=== PATIENT | female | born 1975 | race Caucasian/White ===

== ENCOUNTER 2017-04-19 08:49 | Emergency (ER) | payer OTHER ==
[2017-04-19 08:59] VITALS: TEMP 98.2; BMI 32.5
--- NOTE | 2017-04-19 09:59 | PDOC ---
History of Present Illness - General History Source: Patient Exam Limitations: No Limitations - History of Present Illness Initial Comments: 04/19/17 10:07 The patient is a 41 year old female, with no significant past medical history who presents to the emergency department with headache for the past two weeks. Patient reports sinus headache, radiating from her nose to the entire top of her head. Patient reports associated nausea and vomiting however denies any weakness, numbness or tingling. Patient reports sinus pressure and post nasal drainage. Patients LMP was 04/17/2017 and notes these symptoms are unusual for her. She denies chest pain or dizziness. She denies fever, chills, abdominal pain, nausea, vomit, diarrhea or constipation. She denies dysuria, frequency, urgency or hematuria. Patient denies sick contacts or recent travel. Allergies: NKA Past surgical history: None Social history: None PCP: Dr. Acosta <Avril Oshea - Last Filed: 04/19/17 10:06> - General History Source: Patient Exam Limitations: No Limitations <Anni Bess - Last Filed: 04/19/17 12:41> - General Chief Complaint: Lightheaded Stated Complaint: DIZZINESS, NAUSEA Time Seen by Provider: 04/19/17 09:16 Past History <Avril Oshea - Last Filed: 04/19/17 10:06> - Past Medical History COPD: No Other medical history: NONE - Suicide/Smoking/Psychosocial Hx Smoking History: Never smoked Hx Alcohol Use: No Drug/Substance Use Hx: No <Anni Bess - Last Filed: 04/19/17 12:41> - Past Medical History Allergies/Adverse Reactions: Allergies Allergy/AdvReac Type Severity Reaction Status Date / Time No Known Allergies Allergy Verified 04/19/17 09:31 Home Medications: Ambulatory Orders Fluticasone Prop 0.05% Nasal [Flonase -] 1 spray NS DAILY #1 bot 04/19/17 Pseudoephedrine HCl 30 mg PO QID PRN #15 tablet 04/19/17 Review of Systems - Review of Systems Able to Perform ROS?: Yes Comments:: 04/19/17 10:07 GENERAL/CONSTITUTIONAL: No fever or chills. No weakness. HEAD, EYES, EARS, NOSE AND THROAT: No change in vision. No ear pain or discharge. No sore throat. GASTROINTESTINAL: No nausea, vomiting, diarrhea or constipation. GENITOURINARY: No dysuria, frequency, or change in urination. CARDIOVASCULAR: No chest pain or shortness of breath. RESPIRATORY: No cough, wheezing, or hemoptysis. MUSCULOSKELETAL: No joint or muscle swelling or pain. No neck or back pain. SKIN: No rash NEUROLOGIC: + headache. No vertigo, loss of consciousness, or change in strength /sensation. ENDOCRINE: No increased thirst. No abnormal weight change. HEMATOLOGIC/LYMPHATIC: No anemia, easy bleeding, or history of blood clots. ALLERGIC/IMMUNOLOGIC: No hives or skin allergy. <Avril Oshea - Last Filed: 04/19/17 10:06> *Physical Exam - Vital Signs Last Vital Signs Temp Pulse Resp BP Pulse Ox 98.2 F 81 20 130/67 100 04/19/17 08:55 04/19/17 08:55 04/19/17 08:55 04/19/17 08:55 04/19/17 08:55 - Physical Exam Comments: 04/19/17 10:07 ADULT EXAM GENERAL: Awake, alert, and fully oriented, in no acute distress HEAD: No signs of trauma EYES: PERRLA, EOMI, sclera anicteric, conjunctiva clear ENT: +Bilateral nasal turbenance enlargement. +Bilateral pharynx cobble stoning. Auricles normal inspection, nares patent, Moist mucosa NECK: Normal ROM, supple, no lymphadenopathy, JVD, or masses LUNGS: Breath sounds equal, clear to auscultation bilaterally. No wheezes, and no crackles HEART: Regular rate and rhythm, normal S1 and S2, no murmurs, rubs or gallops ABDOMEN: Soft, nontender, normoactive bowel sounds. No guarding, no rebound. No masses EXTREMITIES: Normal range of motion, no edema. No clubbing or cyanosis. No cords, erythema, or tenderness NEUROLOGICAL: Normal speech SKIN: Warm, Dry, normal turgor, no rashes or lesions noted. <Avril Oshea - Last Filed: 04/19/17 10:06> - Vital Signs Last Vital Signs Temp Pulse Resp BP Pulse Ox 98.2 F 81 20 130/67 100 04/19/17 08:55 04/19/17 08:55 04/19/17 08:55 04/19/17 08:55 04/19/17 08:55 <Anni Bess - Last Filed: 04/19/17 12:41> ED Treatment Course - LABORATORY CBC & Chemistry Diagram: 04/19/17 10:20 04/19/17 10:20 <Anni Bess - Last Filed: 04/19/17 12:41> Medical Decision Making - Medical Decision Making 04/19/17 09:55 41 yo f with no pmhx here wtih c/o headache and feeling fatigued. has had for 2 weeks. describes as frontal, radiating to back of head. has had similar in the past. did have n/ and v once last week. LMP one week ago. no f/c no head trauma. no focal weakness. does have seasonal allergies and sinusitis. on exam sinus ttp, bilat nasal turbinate enlarged. post pharynx cobblestoning. lungs heart normal. nuero exam intact. plan r;/o anemia, electrolyte abnoramlity, treat sinustiis and alelrgies. med ivf. reassess outpt nuero followup 04/19/17 12:30 pt labs unremarkable. feelin improved after meds. will dc home outpt referral for nuerology. given rx. for pseudoephedrine and reglan, motrin. <Anni Bess - Last Filed: 04/19/17 12:41> *DC/Admit/Observation/Transfer - Attestations Scribe Attestion: 04/19/17 10:07 Documentation prepared by Avril Oshea, acting as biomedical engineering internship for Anni Bess MD <Avril Oshea - Last Filed: 04/19/17 10:06> - Discharge Dispostion Admit: No <Anni Bess - Last Filed: 04/19/17 12:41> Diagnosis at time of Disposition: Sinusitis, Headache - Discharge Dispostion Disposition: HOME Condition at time of disposition: Improved - Prescriptions Prescriptions: Fluticasone Prop 0.05% Nasal [Flonase -] 1 spray NS DAILY #1 bot Pseudoephedrine HCl 30 mg PO QID PRN #15 tablet PRN Reason: congestion - Referrals Referrals: Divya Acosta MD [Primary Care Provider] - Murray Garcia MD [Staff Physician] - - Patient Instructions Printed Discharge Instructions: Tension Headache, Sinus Headache Additional Instructions: you should take an over the counter allergy medication such as claritin or zyrtec daily to aid with congestio. you can take pseudophed 30 mg every 6 hrs as needed for nasal congestion and sinus pressure. for your headache take motrin 400 mg every 8 hours as needed. take with food. you can also use flonase one spray intranasal daily to help with nasal congestion. follow up with nuerology for persistant headache. see referral information for dr. garcia.call to schedule.
[2017-04-19] MEDS ORDERED: SODIUM CHLORIDE 0.9% 1000 ML INFUS.BAG IV ONE (10:00)
[2017-04-19] MEDS ORDERED: METOCLOPRAMIDE HCL INJECTION 10 MG/2 ML VIAL IVPUSH ONE (10:01)
[2017-04-19] MEDS ORDERED: PSEUDOEPHEDRINE HCL 30 MG TABLET PO ONE (10:01)
[2017-04-19] MEDS ORDERED: KETOROLAC TROMETHAMINE 30 MG/1 ML VIAL IVPUSH ONE (10:02)
[2017-04-19] MEDS ORDERED: METOCLOPRAMIDE HCL INJECTION 10 MG/2 ML VIAL ONE (10:25)
[2017-04-19] MEDS ORDERED: KETOROLAC TROMETHAMINE 30 MG/1 ML VIAL ONE (10:26)
[2017-04-19] MEDS ORDERED: PSEUDOEPHEDRINE HCL 60 MG TABLET ONE (10:26)
[2017-04-19 10:50] LABS: BASOPHIL 0.4 % (0-2.0); EOSINOPHIL 0.9 % (0-4.5); MEAN CELL VOLUME 81.8 fl (80-96); MEAN PLT VOLUME 9.6 fl (7.5-11.1); NEUTROPHILS 82.6 % (42.8-82.8); PLATELET COUNT 261 K/MM3 (134-434); RDW 14.1 % (11.6-15.6); WHITE BLOOD COUNT 8.6 K/mm3 (4.0-10.0)
[2017-04-19 11:20] LABS: ALBUMIN 4.1 g/dl (3.4-5.0); ANION GAP 7 (8-16); CALCIUM 8.9 mg/dL (8.5-10.1); CO2 29 mmol/L (21-32); CREATININE 0.9 mg/dL (0.55-1.02); GLUCOSE,RANDOM 85 mg/dL (74-106); SGOT/AST 38 U/L (15-37); SGPT/ALT 32 U/L (12-78)
[2017-04-19 11:21] LABS: ALK PHOS 70 U/L (45-117); BILIRUBIN,TOTAL 0.8 mg/dL (0.2-1.0); TOT PROT 7.9 g/dl (6.4-8.2)
[2017-04-19 12:57] VITALS: BP 126/72; PULSE 72
== END 2017-04-19 12:58 | disposition home or self-care (01) ==
LOC: JER 08:49
PROC: 3E0333Z Introduction of Anti-inflammatory into Peripheral Vein, Percutaneous Approach (ICD-10-PCS; principal; 2017-04-19)
PROC: 3E033GC Introduction of Other Therapeutic Substance into Peripheral Vein, Percutaneous Approach (ICD-10-PCS; 2017-04-19)
PROC: 3E0337Z Introduction of Electrolytic and Water Balance Substance into Peripheral Vein, Percutaneous Approach (ICD-10-PCS; 2017-04-19)
DX: J32.9 Chronic sinusitis, unspecified (principal); R51 Headache
CPT/HCPCS: 36415; 80053; 84703; 85025; 99283-25

== ENCOUNTER 2018-06-04 10:07 | Emergency (ER) | payer OTHER ==
[2018-06-04 10:26] VITALS: BMI 34.4
[2018-06-04] MEDS ORDERED: KETOROLAC TROMETHAMINE 30 MG/1 ML VIAL IM ONE (11:29)
--- NOTE | 2018-06-04 11:29 | PDOC ---
History of Present Illness - General Chief Complaint: Back Pain Stated Complaint: BACK PAIN Time Seen by Provider: 06/04/18 10:54 - History of Present Illness Initial Comments: 42yo F with rheumatoid arthritis diagnosed in June, history of ovarian cysts , UPJ obstruction s/p stent in 2007 presenting with back pain. Patient reports that she has had chronic back pain for many years but her pain has gotten progressively worse over the past month, now rated 9/10. Pain worsens with movement. Patient continues to ambulate and go to work, but is limited by pain. No saddle anesthesia, shooting pain down her legs, or incontinence. She saw her primary care physician, Dr. Acosta, about two weeks ago who gave her a muscle relaxer and motrin. Patient has felt some relief of pain, but the pain remains severe. She called her doctor today as the pain now radiates anteriorly, especially in the LLQ, and was advised to come to the ED. Patient also endorses burning sensation when urinating, but no hematuria or frequency. No fevers, chills, chest pain or shortness of breath. Past History - Past Medical History Allergies/Adverse Reactions: Allergies Allergy/AdvReac Type Severity Reaction Status Date / Time No Known Allergies Allergy Verified 04/19/17 09:31 Home Medications: Ambulatory Orders Fluticasone Prop 0.05% Nasal [Flonase -] 1 spray NS DAILY #1 bot 04/19/17 Pseudoephedrine HCl 30 mg PO QID PRN #15 tablet 04/19/17 Acetaminophen W/ Codeine #3 [Tylenol # 3 -] 1 tab PO Q6H #12 tablet MDD 4 doses 06/04/18 Acetaminophen W/ Codeine #3 [Tylenol # 3 -] 1 tab PO Q6H PRN #15 tablet MDD 4 Acetaminophen W/ Codeine #3 [Tylenol # 3 -] 1 tab PO Q6H PRN #15 tablet MDD 4 Prednisone [Deltasone] 40 mg PO DAILY #8 tablet 06/04/18 COPD: No Other medical history: UPJ -OBSTRUCTION(STENT X3) RA - Immunization History Immunization Up to Date: Yes - Suicide/Smoking/Psychosocial Hx Smoking History: Never smoked Have you smoked in the past 12 months: No Information on smoking cessation initiated: No Hx Alcohol Use: No Drug/Substance Use Hx: No Review of Systems - Review of Systems Comments:: Constitutional: no fever, no chills HEENT: no throat pain, no dysphagia Cardiovascular: no chest pain, no palpitations Respiratory: no cough, no shortness of breath Gastrointestinal: no abdominal pain, no nausea, no vomiting Genitourinary: +dysuria, no frequency Musculoskeletal: +back pain Skin: no rash, no itching Neurologic: no headache, no dizziness *Physical Exam - Vital Signs Last Vital Signs Temp Pulse Resp BP Pulse Ox 98.4 F 62 18 128/79 99 06/04/18 10:24 06/04/18 10:24 06/04/18 10:24 06/04/18 10:24 06/04/18 11:11 - Physical Exam Comments: General: Awake, alert, and fully oriented, in no acute distress Head: No signs of trauma Eyes: EOMI, sclera anicteric ENT: Moist mucus membranes Neck: Normal ROM, supple Lungs: Lungs clear, Normal breath sounds Cardio: Regular rhythm, S1 and S2 present Abdomen: Tender to palpation, LLQ>RLQ. Soft, no guarding, no rebound, no masses Extremities: Normal range of motion, Distal pulses present SKIN: Warm, Dry, normal turgor Neurologic: Cranial nerves II through XII grossly intact. Back: Bony tenderness to palpation in L4 area, midline, no step-offs/deformities /fluctuance; no overlying wound or lesion; positive straight leg test on left Moderate Sedation - Procedure Monitoring Vital Signs: Procedure Monitoring Vital Signs Temperature 98.4 F 06/04/18 10:24 Pulse Rate 62 06/04/18 10:24 Respiratory Rate 18 06/04/18 10:24 Blood Pressure 128/79 06/04/18 10:24 O2 Sat by Pulse Oximetry (%) 99 06/04/18 11:11 ED Treatment Course - LABORATORY CBC & Chemistry Diagram: 06/04/18 11:55 06/04/18 11:55 Medical Decision Making - Medical Decision Making 42yo F with rheumatoid arthritis diagnosed in June, history of ovarian cysts , UPJ obstruction s/p stent in 2007 presenting with back pain. -DDX includes but not limited to: acute on chronic back pain, MSK, UTI, UPJ obstruction, nephrolithiasis, ovarian cyst -Labs -Imaging -Toradol 30 IM 06/04/18 12:09 Pain somewhat alleviated, now 6/10. 06/04/18 13:05 Ofirmev 1g IV given. Spiral CT negative for acute pathology. UA negative. Other labs unremarkable. 06/04/18 14:21 Decision made to discharge patient with tylenol #3 and prednisone *DC/Admit/Observation/Transfer Diagnosis at time of Disposition: Back pain Qualifiers: Back pain location: low back pain Chronicity: unspecified Back pain laterality : unspecified Sciatica presence: unspecified whether sciatica present Qualified Code(s): M54.5 - Low back pain - Discharge Dispostion Disposition: HOME Condition at time of disposition: Stable - Prescriptions Prescriptions: Acetaminophen W/ Codeine #3 [Tylenol # 3 -] 1 tab PO Q6H PRN #15 tablet MDD 4 PRN Reason: Pain Acetaminophen W/ Codeine #3 [Tylenol # 3 -] 1 tab PO Q6H PRN #15 tablet MDD 4 PRN Reason: Pain Acetaminophen W/ Codeine #3 [Tylenol # 3 -] 1 tab PO Q6H #12 tablet MDD 4 doses Prednisone [Deltasone] 40 mg PO DAILY #8 tablet - Referrals Referrals: Divya Acosta MD [Primary Care Provider] - - Patient Instructions Printed Discharge Instructions: DI for Rheumatoid Arthritis Additional Instructions: Please make an appointment with your doctor next week. Your blood work and urine work is unremarkable. Your CT scan of the abdomen and pelvis showed no acute findings. This could be from rheumatoid arthritis. Please take tylenol with number 3 every 6 hours as needed for pain. Please take the prednisone every day for the next 4 days. If you have excruciating pain, please return to the ER. - Post Discharge Activity
[2018-06-04] MEDS ORDERED: KETOROLAC TROMETHAMINE 30 MG/1 ML VIAL ONE (11:35)
[2018-06-04] MEDS ORDERED: SODIUM CHLORIDE 1,000 ML IV STA (11:36)
--- NOTE | 2018-06-04 11:45 | PDOC ---
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 Patient reports history of thoracic and lumbar spinal pain that is chronic. Initially, the patient reported that the symptoms were gradually worsened over the past month. Patient saw her primary care physician who prescribed her Flexeril with no relief. Has noted that the pain is worsened despite taking Motrin at home. Denies fevers or chills but did also note some dysuria. No urinary frequency. Reports some left flank pain. No fevers or chills. Patient reports pain is 9 out of 10. Denies saddle anesthesia, urinary bowel incontinence, numbness or weakness. - Physicial Exam PE: 06/04/18 11:45 GENERAL: Awake, alert, and fully oriented, in no acute distress HEAD: No signs of trauma EYES: PERRLA, EOMI, sclera anicteric, conjunctiva clear ENT: Auricles normal inspection, hearing grossly normal, nares patent, Moist mucosa NECK: Normal ROM, supple, LUNGS: Breath sounds equal, clear to auscultation bilaterally. No wheezes, and no crackles HEART: Regular rate and rhythm, normal S1 and S2, no murmurs, rubs or gallops ABDOMEN: Soft, nontender, No guarding, no rebound. No masses BACK: chronic TTP diffuse across spine. Not worse from before. No step offs appreciated. + left sided CVA tenderness +SLR positive ~45 degrees LLE. EXTREMITIES: Normal range of motion, no edema. No clubbing or cyanosis. No cords, erythema, or tenderness NEUROLOGICAL: Cranial nerves II through XII grossly intact. Normal speech SKIN: Warm, Dry, normal turgor, no rashes or lesions noted. - Medical Decision Making 06/04/18 11:46 Vital Signs Temp Pulse Resp BP Pulse Ox 98.4 F 62 18 128/79 99 06/04/18 10:24 06/04/18 10:24 06/04/18 10:24 06/04/18 10:24 06/04/18 11:11 42-year-old female patient presents with acute on chronic back pain. Differential includes acute on chronic back pain, sciatica, pyelonephritis, renal colic, urreteral obstruction, muscle skeletal, cystitis. We'll obtain labs, urinalysis and a CAT scan and reassess. CBC, BMP 06/04/18 11:55 06/04/18 11:55 CMP Sodium 137 mmol/L (136-145) 06/04/18 11:55 Potassium 4.1 mmol/L (3.5-5.1) 06/04/18 11:55 Chloride 104 mmol/L (98-107) 06/04/18 11:55 Carbon Dioxide 28 mmol/L (21-32) 06/04/18 11:55 Anion Gap 5 MMOL/L (8-16) L 06/04/18 11:55 BUN 18 mg/dL (7-18) 06/04/18 11:55 Creatinine 0.9 mg/dL (0.55-1.3) 06/04/18 11:55 Creat Clearance w eGFR > 60 (>60) 06/04/18 11:55 Random Glucose 81 mg/dL (74-106) 06/04/18 11:55 Calcium 8.5 mg/dL (8.5-10.1) 06/04/18 11:55 Total Bilirubin 0.4 mg/dL (0.2-1) 06/04/18 11:55 AST 15 U/L (15-37) 06/04/18 11:55 ALT 23 U/L (13-61) 06/04/18 11:55 Alkaline Phosphatase 65 U/L (45-117) 06/04/18 11:55 Total Protein 7.3 g/dl (6.4-8.2) 06/04/18 11:55 Albumin 3.8 g/dl (3.4-5.0) 06/04/18 11:55 Lipase 150 U/L (73-393) 06/04/18 11:55 06/04/18 14:54 CAT scan demonstrates moderate amount of retained fecal material throughout the colon but no other findings. 06/04/18 16:08 I had spoken and evaluted the patient. The patient feels somewhat better. The pain could be a flareup of her rhematoid arthritis. Will initiate 5 day course of 40 mg prednisone daily. I will have the patient be re-evaluated by her doctor next week. Pt feels satisfied by her care. Return precautions given. *DC/Admit/Observation/Transfer Diagnosis at time of Disposition: Back pain Qualifiers: Back pain location: low back pain Chronicity: unspecified Back pain laterality : unspecified Sciatica presence: unspecified whether sciatica present Qualified Code(s): M54.5 - Low back pain - Discharge Dispostion Disposition: HOME Condition at time of disposition: Stable Decision to Admit order: No - Prescriptions Prescriptions: Acetaminophen W/ Codeine #3 [Tylenol # 3 -] 1 tab PO Q6H PRN #15 tablet MDD 4 PRN Reason: Pain Prednisone [Deltasone] 40 mg PO DAILY #8 tablet - Referrals Referrals: Divya Acosta MD [Primary Care Provider] - - Patient Instructions Printed Discharge Instructions: DI for Rheumatoid Arthritis Additional Instructions: Please make an appointment with your doctor next week. Your blood work and urine work is unremarkable. Your CT scan of the abdomen and pelvis showed no acute findings. This could be from rheumatoid arthritis. Please take tylenol with number 3 every 6 hours as needed for pain. Please take the prednisone every day for the next 4 days. If you have excruciating pain, please return to the ER. - Post Discharge Activity
[2018-06-04 12:14] LABS: HEMATOCRIT 37.6 % (32.4-45.2); HEMOGLOBIN 12.1 GM/dL (10.7-15.3); MEAN CELL VOLUME 82.4 fl (80-96); RBC 4.56 M/mm3 (3.60-5.2); WHITE BLOOD COUNT 8.3 K/mm3 (4.0-10.0)
[2018-06-04 12:15] LABS: BASO % 0.4 % (0-2.0); EOS % 1.9 % (0-4.5); LYMPH % 22.8 % (8-40); MCH 26.5 pg (25.7-33.7); MCHC 32.2 g/dl (32.0-36.0); MEAN PLT VOLUME 9.4 fl (7.5-11.1); MONO % 4.7 % (3.8-10.2); NEUT % 70.2 % (42.8-82.8); PLATELET COUNT 244 K/MM3 (134-434); RDW 13.6 % (11.6-15.6)
[2018-06-04 12:19] LABS: URINE APPEARANCE CLEAR; URINE BILIRUBIN NEGATIVE (<2.0 mg/dL); URINE COLOR LTYELLOW; URINE GLUCOSE (UA) NEGATIVE (NEGATIVE); URINE KETONE NEGATIVE (NEGATIVE); URINE LEUK ESTERASE NEGATIVE (NEGATIVE); URINE NITRITE NEGATIVE (NEGATIVE); URINE PROTEIN NEGATIVE (NEGATIVE); URINE UROBILINOGEN NEGATIVE mg/dL (0.2-1.0)
[2018-06-04 12:29] LABS: ALBUMIN 3.8 g/dl (3.4-5.0); ALK PHOS 65 U/L (45-117); ANION GAP 5 MMOL/L (8-16); BILIRUBIN,TOTAL 0.4 mg/dL (0.2-1); BLOOD UREA NITROGEN 18 mg/dL (7-18); CALCIUM 8.5 mg/dL (8.5-10.1); CHLORIDE 104 mmol/L (98-107); CO2 28 mmol/L (21-32); CREATININE 0.9 mg/dL (0.55-1.3); GLUCOSE,RANDOM 81 mg/dL (74-106); LIPASE 150 U/L (73-393); POTASSIUM 4.1 mmol/L (3.5-5.1); SGOT/AST 15 U/L (15-37); SGPT/ALT 23 U/L (13-61); SODIUM 137 mmol/L (136-145); TOT PROT 7.3 g/dl (6.4-8.2)
[2018-06-04] MEDS ORDERED: ACETAMINOPHEN 1000 MG/100 ML VIAL (NON FORMULARY) IVPB ONE (14:54)
[2018-06-04] MEDS ORDERED: predniSONE 20 MG TABLET (UD) PO ONE (16:17)
[2018-06-04] MEDS ORDERED: predniSONE 20 MG TABLET (UD) ONE (16:26)
[2018-06-04 16:36] VITALS: BP 124/78; PULSE 78; TEMP 98.5
== END 2018-06-04 16:23 | disposition home or self-care (01) ==
LOC: JER 10:07
PROC: 3E033NZ Introduction of Analgesics, Hypnotics, Sedatives into Peripheral Vein, Percutaneous Approach (ICD-10-PCS; principal; 2018-06-04)
PROC: 3E0233Z Introduction of Anti-inflammatory into Muscle, Percutaneous Approach (ICD-10-PCS; 2018-06-04)
PROC: 3E0337Z Introduction of Electrolytic and Water Balance Substance into Peripheral Vein, Percutaneous Approach (ICD-10-PCS; 2018-06-04)
DX: M54.5 Low back pain (principal); M06.9 Rheumatoid arthritis, unspecified
CPT/HCPCS: 36415; 74176; 80053; 81003; 83690; 84703; 85025; 87086; 99283-25; J0131; J7030

== ENCOUNTER 2021-02-10 19:00 | Emergency (ER) | payer OTHER ==
[2021-02-10 19:33] VITALS: BP 132/81; PULSE 76; TEMP 98.1; BMI 31.7
[2021-02-10] MEDS ORDERED: KETOROLAC TROMETHAMINE 60 MG/2 ML VIAL IM ONE (20:46)
[2021-02-10] MEDS ORDERED: LIDOCAINE 5% TOPICAL PATCH TP ONE (20:46)
[2021-02-10] MEDS ORDERED: METHOCARBAMOL 500 MG TABLET PO ONE (20:46)
[2021-02-10] MEDS ORDERED: ACETAMINOPHEN 325 MG TABLET (FP) PO ONE (20:46)
[2021-02-10] MEDS ORDERED: ACETAMINOPHEN 325 MG TABLET (FP) ONE (20:54)
[2021-02-10] MEDS ORDERED: LIDOCAINE 5% TOPICAL PATCH ONE (20:54)
[2021-02-10] MEDS ORDERED: METHOCARBAMOL 500 MG TABLET ONE (20:55)
[2021-02-10] MEDS ORDERED: KETOROLAC TROMETHAMINE 30 MG/1 ML VIAL ONE (20:55)
[2021-02-10] MEDS ORDERED: LIDOCAINE PATCH REMOVAL MC ONE (22:00)
== END 2021-02-10 21:48 | disposition home or self-care (01) ==
LOC: JERFT 19:00 → JER 19:00 → JERFT 21:48
PROC: 3E023GC Introduction of Other Therapeutic Substance into Muscle, Percutaneous Approach (ICD-10-PCS; principal; 2021-02-10)
DX: M54.42 Lumbago with sciatica, left side (principal); M54.2 Cervicalgia; V49.40XA Driver injured in collision with unspecified motor vehicles in traffic accident, initial encounter
CPT/HCPCS: 72040-TC; 72100-TC-FY; 99284-25